=== PATIENT | female | born 1935 | race Caucasian/White ===

== ENCOUNTER 2019-03-11 11:43 | Emergency (ER) | payer BC ==
[~2019-03-11] VITALS: Ht 144.8 cm; Wt 77.1 kg
[2019-03-11 11:43] VITALS: BP_SYST 106
[~2019-03-11 11:43] MED LIST: ALEN70TA3 PO; AMLO5TAB92 PO; ASPI-1153 PO; ATOR40TA68 PO; BETA1TAB18 PO; CALC1TAB51 PO; DOCU100T9 PO; ELA10 PO; FURO-150 PO; LEVO75TA7 PO; METF1000 PO; OMEP20TA20 PO; PRO-AIR INH; TRAM50TA92 PO; VALS80TA2 PO; [UNRECOGNIZED DRUG - OTHER] PO
[2019-03-11 12:53] LABS: BASOPHILS # (AUTO) 0.1 K/uL (0.0-0.2); BASOPHILS % (AUTO) 1.2 % (0.0-2.0); EOSINOPHILS # (AUTO) 0.1 K/uL (0.0-0.4); EOSINOPHILS % (AUTO) 0.9 % (0.0-4.0); HEMATOCRIT 38.9 % (36-48); HEMOGLOBIN 11.4 g/dL (12.0-16.0); LYMPHOCYTES # (AUTO) 0.7 K/uL (1.0-5.5); LYMPHOCYTES % (AUTO) 7.1 % (20.5-51.5); MEAN CORPUSCULAR HEMOGLOBIN 20 pg (27-31); MEAN CORPUSCULAR HGB CONC 29 % (32-36); MEAN CORPUSCULAR VOLUME 69 fL (79.0-98.0); MONOCYTES # (AUTO) 0.8 K/uL (0.0-1.0); MONOCYTES % (AUTO) 7.9 % (1.7-9.3); NEUTROPHILS # (AUTO) 8.8 K/uL (1.8-7.7); NEUTROPHILS % (AUTO) 82.9 % (40.0-70.0); PLATELET COUNT (AUTO) 299 K/uL (130-430); RED BLOOD CELL COUNT(AUTO) 5.63 MIL/uL (4.2-6.2); RED CELL DISTRIBUTION WIDTH 19.3 % (9.0-15.0); WHITE BLOOD COUNT (AUTO) 10.6 K/uL (4.8-10.8)
[2019-03-11 13:09] LABS: ANION GAP 11 (5-15); CALCIUM 9.8 mg/dL (8.4-11.0); CHLORIDE 108 mmol/L (98-107); CREATININE 1.62 mg/dL (0.55-1.30); GLUCOSE 120 mg/dL (70-99); POTASSIUM 4.8 mmol/L (3.5-5.1); SODIUM SERUM 145 mmol/L (136-145); UREA NITROGEN, BLOOD 30 mg/dL (8-21)
[2019-03-11 13:10] LABS: PROTHROMBIN TIME 10.6 SECS (9.5-12.5)
[2019-03-11 13:19] LABS: ALANINE AMINOTRANSFERASE 24 U/L (12-78); ALBUMIN 3.5 g/dL (3.4-4.8); ASPARTATE AMINOTRANSFERASE 38 U/L (10-37); FREE T4 (FREE THYROXINE) 1.4 ng/dl (0.8-1.5); TOTAL BILIRUBIN 0.4 mg/dL (0.0-1.0)
[2019-03-11 13:23] LABS: ALCOHOL, BLOOD < 3 mg/dL (<10)
[2019-03-11 13:35] LABS: BILIRUBIN,URINE NEGATIVE (NEGATIVE); BLOOD, URINE NEGATIVE (NEGATIVE); CLARITY/URINE CLEAR (CLEAR); COLOR,URINE YELLOW (YELLOW); GLUCOSE,URINE NEGATIVE (NEGATIVE); KETONES,URINE NEGATIVE (NEGATIVE); LEUKOCYTE ESTERASE ,URINE NEGATIVE (NEGATIVE); NITRITE, URINE NEGATIVE (NEGATIVE); PH,URINE 6.5 (5.0-8.0); PROTEIN URINE 1+ (NEGATIVE); UROBILINOGEN,URINE 0.2 (0.2-1.0)
[2019-03-11] MEDS ORDERED: NS 500 ML IV ONE (13:45)
[2019-03-11 13:51] LABS: BARBITURATE, URINE NEGATIVE (NEG <=200); BENZODIAZEPINE, URINE NEGATIVE (NEG <=150); CANNABINOID, URINE NEGATIVE (NEG <=50); COCAINE, URINE NEGATIVE (NEG <=150); METHAMPHETAMINES SCREEN,URINE NEGATIVE (NEG <=500); OPIATE, URINE NEGATIVE (NEG <=100); PHENCYCLIDINE SCREEN,URINE NEGATIVE (NEG <=25); UR TRICYCLIC ANTIDEPRESSANTS NEGATIVE (NEG <=300); URINE AMPHETAMINE NEGATIVE (NEG <=500); URINE METHADONE NEGATIVE (NEG <=200); URINE OXYCODONE SCREEN NEGATIVE (NEG <=100); URINE PROPOXYPHENE SCREEN NEGATIVE (NEG <=300)
[2019-03-11 13:59] LABS: BACTERIA,URINE FEW /HPF (None Seen); RBC,URINE 0-3 /HPF (0-3); WBC,URINE 0-3 /HPF (0-3)
[2019-03-11 14:05] LABS: HYALINE CASTS, URINE 0-10 /LPF (None Seen)
[2019-03-11] MEDS ORDERED: SPIR25TA6 PO (15:25)
[2019-03-11] MEDS ORDERED: GABA-533 PO (15:25)
[2019-03-11] MEDS ORDERED: TIZA4TAB11 PO (15:25)
[2019-03-11] MEDS ORDERED: AMAN100C16 PO (15:25)
[2019-03-11] MEDS ORDERED: PRED5TAB PO (15:25)
[2019-03-11] MEDS ORDERED: IRBE300T40 PO (15:26)
[2019-03-11] MEDS ORDERED: PRAM0.5T3 PO (15:26)
[2019-03-11] MEDS ORDERED: OMEP40CA33 PO (15:26)
[2019-03-11] MEDS ORDERED: FURO-149 PO (15:29)
[2019-03-11 16:55] VITALS: BP_SYST 158
== END 2019-03-11 15:55 | disposition home or self-care (01) ==
LOC: SED 11:43
DX: R53.1 Weakness (principal); J44.9 Chronic obstructive pulmonary disease, unspecified; E11.9 Type 2 diabetes mellitus without complications; I10 Essential (primary) hypertension; M79.7 Fibromyalgia; M19.90 Unspecified osteoarthritis, unspecified site; Z88.1 Allergy status to other antibiotic agents; Z79.82 Long term (current) use of aspirin; Z79.899 Other long term (current) drug therapy
CPT/HCPCS: 36415; 70450; 71045; 74018; 80053; 81000; 80307; 82140; 83605; 83880; 84439; 84484; 85025; 85610; 87040; 93005; 93970; 99284; G0482; J7030